=== PATIENT | male | born 1995 | race American Indian/Alaskan Native ===

== ENCOUNTER 2018-12-12 17:42 | Emergency (ER) | payer SELFPAY ==
[2018-12-12 18:02] VITALS: BP 136/78
[2018-12-12] MEDS ORDERED: FUL-GLO OP ONE (19:19)
[2018-12-12] MEDS ORDERED: TETRACAINE 0.5% OU ONE (19:19)
--- NOTE | 2018-12-12 20:15 | Emergency Department Report ---
ED Eye Problem HPI - General Chief complaint: Eye Problems Stated complaint: LFT EYE RED/PAIN Time Seen by Provider: 12/12/18 19:12 Source: patient Mode of arrival: Ambulatory Limitations: No Limitations - History of Present Illness Initial comments: 23-year-old male presents to ED with left eye pain and redness. Patient states he was at work yesterday, lifted a box, and states dentist and debris went into his eye. Patient has been rubbing his eye, having pain and tearing since. Patient reports foreign body sensation. Reports blurred vision. MD chief complaint: eye pain, eye redness, foreign body -: days(s) (1) Location: left eye Place: work Eye Symptoms: burning, redness, foreign body sensation, discharge, blurry vision Severity: moderate If Pain, Quality: burning Consistency: constant Associated Symptoms: none Treatments Prior to Arrival: none - Related Data Previous Rx's Medication Instructions Recorded Last Taken Type Dicyclomine [Bentyl] 10 mg PO QID PRN #40 capsule 09/27/18 Unknown Rx Naproxen [Naprosyn] 500 mg PO BID PRN #30 tablet 09/27/18 Unknown Rx raNITIdine HCl [Zantac] 150 mg PO BID #60 tablet 09/27/18 Unknown Rx Bacitracin [Bacitracin Ophth] 1 applicatio OS BID 5 Days #1 tube 12/12/18 Unknown Rx Allergies Allergy/AdvReac Type Severity Reaction Status Date / Time No Known Allergies Allergy Verified 12/12/18 22:54 ED Review of Systems ROS: Stated complaint: LFT EYE RED/PAIN Other details as noted in HPI Comment: All other systems reviewed and negative Constitutional: denies: chills, fever Eyes: eye pain, eye discharge Neurological: denies: headache ED Past Medical Hx - Past Medical History Previous Medical History?: Yes Hx Asthma: Yes - Surgical History Past Surgical History?: No - Social History Smoking Status: Never Smoker Substance Use Type: None - Medications Home Medications: Home Medications Medication Instructions Recorded Confirmed Last Taken Type Dicyclomine [Bentyl] 10 mg PO QID PRN #40 capsule 09/27/18 Unknown Rx Naproxen [Naprosyn] 500 mg PO BID PRN #30 tablet 09/27/18 Unknown Rx raNITIdine HCl [Zantac] 150 mg PO BID #60 tablet 09/27/18 Unknown Rx Bacitracin [Bacitracin Ophth] 1 applicatio OS BID 5 Days #1 tube 12/12/18 Unknown Rx ED Physical Exam - General Limitations: No Limitations General appearance: alert, in no apparent distress - Head Head exam: Present: atraumatic, normocephalic - Eye Eye exam: Present: PERRL, EOMI, conjunctival injection (left eye), other (foreig n body removed from left eye; appears to be a piece of paper/ cardboard; Wood's lamp normal) - ENT ENT exam: Present: mucous membranes moist - Neck Neck exam: Present: normal inspection - Respiratory Respiratory exam: Present: normal lung sounds bilaterally. Absent: respiratory distress - Cardiovascular Cardiovascular Exam: Present: normal rhythm, bradycardia - GI/Abdominal GI/Abdominal exam: Absent: distended - Extremities Exam Extremities exam: Present: normal inspection, full ROM - Neurological Exam Neurological exam: Present: alert, oriented X3, CN II-XII intact. Absent: motor sensory deficit - Psychiatric Psychiatric exam: Present: normal affect, normal mood - Skin Skin exam: Present: warm, dry, intact, normal color ED Course Vital Signs 12/12/18 18:00 Temperature 98.1 F Pulse Rate 53 L Respiratory 14 Rate Blood Pressure 136/78 O2 Sat by Pulse 98 Oximetry ED Medical Decision Making - Medical Decision Making - foreign body removed from eye - pt works w/ cardboard boxes; appears to be a piece of paper or cardboard - Prescription given for bacitracin ophthalmic ointment - Outpatient follow-up is advised, return precautions given - Differential Diagnosis foreign body, conjunctivitis, iritis, corneal abrasion Critical care attestation.: If time is entered above; I have spent that time in minutes in the direct care of this critically ill patient, excluding procedure time. ED Disposition Clinical Impression: Foreign body, eye Disposition: DC-01 TO HOME OR SELFCARE Is pt being admited?: No Condition: Stable Instructions: Eye Foreign Body (ED) Prescriptions: Bacitracin [Bacitracin Ophth] 1 applicatio OS BID 5 Days #1 tube Referrals: HAFSA PANDYA MD [Staff Physician] - as needed [facility] [Provider Group] - 3-5 Days Time of Disposition: 20:15
[2018-12-12] MEDS ORDERED: PEPCID IV ONE (22:56)
[2018-12-12] MEDS ORDERED: NACL 0.9% 1000 ML 1,000 ML ONE ×2 (22:56→23:57)
[2018-12-12] MEDS ORDERED: HALDOL ONE ×2 (22:56→23:57)
[2018-12-12] MEDS ORDERED: KCL 10MEQ/100ML 10 MEQ/100 ML BAG IV ONE (23:57)
== END 2018-12-12 20:20 | disposition home or self-care (01) ==
LOC: ED 17:42
DX: T15.12XA Foreign body in conjunctival sac, left eye, initial encounter (principal); J45.909 Unspecified asthma, uncomplicated; Z79.899 Other long term (current) drug therapy; X58.XXXA Exposure to other specified factors, initial encounter; Y93.89 Activity, other specified; Y92.89 Other specified places as the place of occurrence of the external cause; Y99.8 Other external cause status
CPT/HCPCS: J1630; J3480; J7030

== ENCOUNTER 2019-11-10 14:28 | Emergency (ER) | payer SELFPAY ==
[2019-11-10 14:35] VITALS: BP 113/70
--- NOTE | 2019-11-10 17:11 | Emergency Department Report ---
ED Lower Extremity HPI - General Chief Complaint: Puncture Wound Stated Complaint: RT FOOT NAIL/PAIN Time Seen by Provider: 11/10/19 16:04 Source: patient Mode of arrival: Ambulatory Limitations: No Limitations - History of Present Illness Initial Comments: [age]-year-old male male reports stepping on a sharp pain tab at [place] to 3 days ago since that time is been developing progressively worsening foot swelling and pain of unknown etiology. Pain is not to the point does begin to radiate up his leg. None fevers, chills, sweats but the area is more swollen and tender not quite responding to [id number] medications. MD Complaint: foot injury - Related Data Previous Rx's Medication Instructions Recorded Last Taken Type Dicyclomine [Bentyl] 10 mg PO QID PRN #40 capsule 09/27/18 Unknown Rx Naproxen [Naprosyn] 500 mg PO BID PRN #30 tablet 09/27/18 Unknown Rx raNITIdine HCL [Zantac] 150 mg PO BID #60 tablet 09/27/18 Unknown Rx Bacitracin [Bacitracin Ophth] 1 applicatio OS BID 5 Days #1 tube 12/12/18 Unknown Rx Chlorhexidine Gluconate [Hibiclens] 10 ml TP BID #240 liquid 11/10/19 Unknown Rx Ketorolac [Toradol] 10 mg PO Q6H PRN #15 tablet 11/10/19 Unknown Rx cephALEXin [Keflex] 500 mg PO Q6HR #40 capsule 11/10/19 Unknown Rx Allergies Allergy/AdvReac Type Severity Reaction Status Date / Time No Known Allergies Allergy Verified 11/10/19 14:31 ED Review of Systems ROS: Stated complaint: RT FOOT NAIL/PAIN Other details as noted in HPI Comment: All other systems reviewed and negative ED Past Medical Hx - Past Medical History Hx Asthma: Yes - Surgical History Past Surgical History?: No - Social History Smoking Status: Current Every Day Smoker Substance Use Type: None - Medications Home Medications: Home Medications Medication Instructions Recorded Confirmed Last Taken Type Dicyclomine [Bentyl] 10 mg PO QID PRN #40 capsule 09/27/18 Unknown Rx Naproxen [Naprosyn] 500 mg PO BID PRN #30 tablet 09/27/18 Unknown Rx raNITIdine HCL [Zantac] 150 mg PO BID #60 tablet 09/27/18 Unknown Rx Bacitracin [Bacitracin Ophth] 1 applicatio OS BID 5 Days #1 tube 12/12/18 Unknown Rx Chlorhexidine Gluconate [Hibiclens] 10 ml TP BID #240 liquid 11/10/19 Unknown Rx Ketorolac [Toradol] 10 mg PO Q6H PRN #15 tablet 11/10/19 Unknown Rx cephALEXin [Keflex] 500 mg PO Q6HR #40 capsule 11/10/19 Unknown Rx ED Physical Exam - General Limitations: No Limitations General appearance: alert, in no apparent distress - Head Head exam: Present: atraumatic, normocephalic - Eye Eye exam: Present: normal appearance - ENT ENT exam: Present: mucous membranes moist - Neck Neck exam: Present: normal inspection - Respiratory Respiratory exam: Present: normal lung sounds bilaterally. Absent: respiratory distress - Cardiovascular Cardiovascular Exam: Present: regular rate, normal rhythm. Absent: systolic mu rmur, diastolic murmur, rubs, gallop - GI/Abdominal GI/Abdominal exam: Present: soft, normal bowel sounds - Rectal Rectal exam: Present: deferred - Extremities Exam Extremities exam: Present: normal inspection, tenderness, normal capillary refill, other. Absent: calf tenderness - Expanded Lower Extremity Exam Right Foot/Toe exam: Present: tenderness, swelling 1 - Swollen red tenderness with palpation. No obvious retained foreign bodies visualized. - Back Exam Back exam: Present: normal inspection - Neurological Exam Neurological exam: Present: alert, oriented X3 - Psychiatric Psychiatric exam: Present: normal affect, normal mood - Skin Skin exam: Present: warm, dry, intact, normal color. Absent: rash ED Course Vital Signs 11/10/19 14:35 Temperature 99.9 F H Pulse Rate 93 H Respiratory 20 Rate Blood Pressure 113/70 O2 Sat by Pulse 94 Oximetry Critical care attestation.: If time is entered above; I have spent that time in minutes in the direct care of this critically ill patient, excluding procedure time. ED Disposition Clinical Impression: Cellulitis of foot, Puncture wound Disposition: DC- TO HOME OR SELFCARE Is pt being admited?: No Does the pt Need Aspirin: No Condition: Stable Instructions: Cellulitis (ED), Puncture Wound (ED), Soft Tissue Foreign Body (ED) Prescriptions: Chlorhexidine Gluconate [Hibiclens] 10 ml TP BID #240 liquid cephALEXin [Keflex] 500 mg PO Q6HR #40 capsule Ketorolac [Toradol] 10 mg PO Q6H PRN #15 tablet PRN Reason: Pain Referrals: PRIMARY CARE, [Primary Care Provider] - 3-5 Days [facility] [Provider Group] - 3-5 Days
== END 2019-11-10 17:15 | disposition home or self-care (01) ==
LOC: ED 14:28
DX: S91.331A Puncture wound without foreign body, right foot, initial encounter (principal); L03.115 Cellulitis of right lower limb; F17.200 Nicotine dependence, unspecified, uncomplicated; X58.XXXA Exposure to other specified factors, initial encounter; Y93.89 Activity, other specified; Y92.89 Other specified places as the place of occurrence of the external cause; Y99.8 Other external cause status
CPT/HCPCS: 99282